=== PATIENT | male | born 1970 | race African-American/Black ===

== ENCOUNTER 2024-10-13 03:34 | Emergency (ER) | payer OTHER ==
[~2024-10-13] VITALS: Ht 190.5 cm; Wt 143.0 kg
[2024-10-13 03:43] VITALS: BP 143/84; PULSE 64; TEMP 98.3; O2SAT 100
[2024-10-13] MEDS ORDERED: HYDR-4001 MT (04:32)
[2024-10-13] MEDS: ACETAMINOPHEN WITH CODEINE 300/30MG TABLET PO ONE (04:40)
[2024-10-13 04:45] VITALS: RESP 18
== END 2024-10-13 04:45 | disposition home or self-care (01) ==
LOC: ER 03:34
DX: R20.2 Paresthesia of skin (principal); M79.641 Pain in right hand
CPT/HCPCS: 73130; 99283